=== PATIENT | female | born 1980 | race Caucasian/White ===

== ENCOUNTER 2023-12-15 17:29 | Emergency (ER) | payer SELFPAY ==
[2023-12-15 17:54] VITALS: BP 109/63; PULSE 63; RESP 17; TEMP 98.7; BMI 24.8
== END 2023-12-15 20:14 | disposition home or self-care (01) ==
LOC: JER 17:29
DX: R51.9 Headache, unspecified (principal); J30.9 Allergic rhinitis, unspecified; R09.81 Nasal congestion; R07.89 Other chest pain
CPT/HCPCS: 71046-TC-FY; 93005; 93010; 99284-25

== ENCOUNTER 2024-03-03 09:04 | Emergency (ER) | payer OTHER ==
[2024-03-03 09:36] VITALS: BP 137/82; PULSE 80; RESP 18; TEMP 98.4; BMI 24.0
[2024-03-03 11:56] LABS: ARTERIAL BLD GAS O2 SATURATION 97.8 % (95-98); ARTERIAL BLOOD GAS PO2 102.1 mmHg (80-100); ARTERIAL BLOOD GAS pH 7.407 (7.350-7.450)
== END 2024-03-03 12:47 | disposition home or self-care (01) ==
LOC: JER 09:04
DX: R51.9 Headache, unspecified (principal); R42 Dizziness and giddiness; T58.91XA Toxic effect of carbon monoxide from unspecified source, accidental (unintentional), initial encounter; Y92.000 Kitchen of unspecified non-institutional (private) residence as the place of occurrence of the external cause; Y92.29 Other specified public building as the place of occurrence of the external cause
CPT/HCPCS: 36600; 82375; 82803; 84703; 99283-25